=== PATIENT | female | born 1985 | race Caucasian/White ===

== ENCOUNTER 2021-12-05 12:01 | Emergency (ER) | payer OTHER ==
--- NOTE | 2021-12-05 12:40 | ED Physician Documentation ---
History of Present Illness - Stated complaint Stated Complaint: LT WRIST INJURY - Chief complaint Chief Complaint: Trauma Ext - Additonal information Additional information: 36-year-old female presents emergency department for evaluation of acute left wrist pain. She slipped on water on her floor at home falling backward onto her left wrist. She was wearing a watch at the time and has significant ecchymosis and swelling over the distal ulna Review of Systems Constitutional: reports: Reviewed and negative Nose: reports: Reviewed and negative Throat: reports: Reviewed and negative Cardiac: reports: Reviewed and negative Respiratory: reports: Reviewed and negative GI: reports: Reviewed and negative : reports: Reviewed and negative Musculoskeletal: reports: Extremity pain PD PAST MEDICAL HISTORY - Allergies Allergies/Adverse Reactions: Allergies Allergy/AdvReac Type Severity Reaction Status Date / Time No Known Drug Allergies Allergy Verified 12/05/21 12:07 PD ED PE EXPANDED - General General: Alert, No acute distress - Extremities Extremities: Left wrist (Significant swelling and tenderness over the distal ulna. Patient endorses some numbness and tingling of the small finger. Able to flex and extend. 2+ radial pulse. Mild tenderness over the distal radius.) Results - Vitals Vitals: Vital Signs - 24 hr 12/05/21 12:04 Temperature 36.6 C Heart Rate 74 Respiratory 18 Rate Blood Pressure 137/82 H O2 Saturation 100 - Rads (name of study) left wrist Radiology: EMP read indepedently (No acute fracture or dislocation.) PD MEDICAL DECISION MAKING - ED course Complexity details: re-evaluated patient, considered differential, d/w patient ED course: 36-year-old female presents emergency department for evaluation of acute left wrist pain after a FOOSH fall at home. Presents with significant swelling and ecchymosis over the distal ulna. My interpretation of the x-rays is that there is no acute fracture dislocation but given the significant swelling and tenderness I suspect there may be an occult fracture. Therefore patient is placed in a volar splint. CMST is preserved post splinting, The patient did present with some subtle tingling in her small finger. Patient is advised to have the splint removed and pain reevaluated in 1 week's time. If not markedly better may need repeat imaging. Routine splint care and emergent return precautions discussed. Departure - Departure Disposition: 01 Home, Self Care Clinical Impression: Contusion of left wrist, initial encounter Condition: Stable Record reviewed to determine appropriate education?: Yes Comments: Clementina mendoza were seen in the emergency department today for pain in your left wrist after you fell at home. He had a significant amount of swelling and bruising over your distal ulna. There are no findings of obvious fracture on x- ray but with the amount of swelling and tenderness that you have I feel it is safe to splint you for about the next week. In about 7 days time the splint should be removed and your pain should be reassessed. If you remain significantly painful or tender it may need to be jacquie-rayed. In general you can place an ice pack over your splint to help reduce swelling. Ibuprofen and Tylenol can be taken for discomfort. If you find that you are having worsening pain in the splint, any finger numbness that is new, finger swelling or discoloration then please return immediately to the ER for second evaluation
--- NOTE | 2021-12-05 13:02 | XRAY Report ---
PROCEDURE: Wrist 4 View LT INDICATIONS: Trauma TECHNIQUE: 4 views of the wrist were acquired. COMPARISON: None FINDINGS: Bones: No fractures or dislocations. No suspicious bony lesions. Scaphoid view: No visualized fracture. Soft tissues: No suspicious soft tissue calcifications. IMPRESSION: No visualized acute fracture or dislocation. However, occult injury cannot be excluded. Recommend cherelle rt interval imaging follow-up in 7-10 days as clinically indicated for additional evaluation. Reviewed by: Deborah Tamayo MD on 12/05/2021 1:01 PM PDT Approved by: Deborah Tamayo MD on 12/05/2021 1:01 PM PDT Station ID: [id number]
[2021-12-05 13:16] VITALS: BP 133/69
== END 2021-12-05 13:20 | disposition home or self-care (01) ==
LOC: ED 12:01
DX: S60.212A Contusion of left wrist, initial encounter (principal); W01.0XXA Fall on same level from slipping, tripping and stumbling without subsequent striking against object, initial encounter; Y92.009 Unspecified place in unspecified non-institutional (private) residence as the place of occurrence of the external cause
CPT/HCPCS: 99282; 99283

== ENCOUNTER 2022-04-14 09:22 | Emergency (ER) | payer OTHER ==
[2022-04-14 09:44] LABS: BILIRUBIN,URINE NEGATIVE (NEGATIVE); GLUCOSE, URINE (UA) NEGATIVE (NEGATIVE); KETONES,URINE (UA) NEGATIVE (NEGATIVE); LEUKOCYTE ESTERASE, URINE TRACE (NEGATIVE); NITRITE,URINE NEGATIVE (NEGATIVE); OCCULT BLOOD,URINE NEGATIVE (NEGATIVE); PROTEIN,URINE NEGATIVE (NEGATIVE); UROBILINOGEN,URINE 0.2 (NORMAL) E.U./dL (NORMAL)
[2022-04-14 09:46] LABS: CLARITY,URINE CLEAR (CLEAR); HCG UR QUAL NEGATIVE
[2022-04-14] MEDS ORDERED: ONDANSETRON 4 MG/2 ML VIAL IVP STA (09:48)
[2022-04-14] MEDS ORDERED: HYDROmorphone 1 MG/ML CARPUJECT IVP STA (09:48)
[2022-04-14 09:49] LABS: BASOPHILS % (AUTO) 0.3 %; EOSINOPHILS % (AUTO) 0.5 %; HCT - HEMATOCRIT 41.4 % (37.0-47.0); LYMPHOCYTES # (AUTO) 1.9 10^3/uL (1.5-3.5); LYMPHOCYTES % (AUTO) 30.4 %; MEAN CORPUSCULAR HEMOGLOBIN 31.5 pg (27.0-31.0); MEAN CORPUSCULAR HGB CONC 33.8 g/dL (32.0-36.0); MEAN CORPUSCULAR VOLUME 93.2 fL (81.0-99.0); MEAN PLATELET VOLUME 10.4 fL (7.9-10.8); MONOCYTES # (AUTO) 0.3 10^3/uL (0.0-1.0); MONOCYTES % (AUTO) 5.2 %; NEUTROPHILS % (AUTO) 63.3 %; PLT - PLATELET COUNT 316 10^3/uL (130-450); RED BLOOD COUNT 4.44 10^6/uL (4.20-5.40); RED CELL DISTRIBUTION WIDTH 12.2 % (12.0-15.0); WHITE BLOOD COUNT 6.4 x10^3/uL (4.8-10.8)
--- NOTE | 2022-04-14 09:51 | ED Physician Documentation ---
PD HPI ABD PAIN - Stated complaint Stated Complaint: RT HIP/ABD PX NAUSEA - Chief complaint Chief Complaint: Abd Pain - Additional information Additional information: Patient is a 36-year-old female presenting with right lower quadrant and right- sided hip pain. Pain began acutely this morning. Reports associated nausea without vomiting. States has felt similar pain in the past but never this severe. 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 Reports a family history of precancerous tumors in the appendix in both her mother and sister. 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 HEENT: Tonsil/Adenoidectomy - Present Medications Home Medications: Ambulatory Orders Medication Instructions Recorded Confirmed HYDROcod/ACETAM 5/325 [[place] 5/325] 1 - 2 ea PO Q6H PRN #14 tablet 04/14/22 Ondansetron Odt [Zofran] 4 mg TL Q6H PRN #10 tablet 04/14/22 - Allergies Allergies/Adverse Reactions: Allergies Allergy/AdvReac Type Severity Reaction Status Date / Time No Known Drug Allergies Allergy Verified 04/14/22 09:36 - Social History Does the pt smoke?: No Smoking Status: Never smoker Does the pt drink ETOH?: Yes Does the pt have substance abuse?: No - Immunizations Immunizations are current?: Yes PD ED PE NORMAL - General General: Alert and oriented X 3 - HEENT HEENT: Atraumatic, PERRL - Neck Neck: Supple, no meningeal sign - Cardiac Cardiac: RRR, No gallop - Respiratory Respiratory: No respiratory distress, Clear bilaterally - Abdomen Abdomen: Normal bowel sounds, Other (Right lower quadrant tenderness) - Female Female : Deferred - Rectal Rectal: Deferred - Back Back: No CVA TTP, No spinal TTP - Derm Derm: Normal color - Extremities Extremities: No deformity Results - Vitals Vitals: Vital Signs - 24 hr 04/14/22 04/14/22 04/14/22 09:30 10:05 12:19 Temperature 36.7 C 37 C Heart Rate 72 61 57 L Respiratory 24 16 16 Rate Blood Pressure 137/86 H 128/79 118/79 O2 Saturation 99 97 99 Oxygen O2 Source Room air - Labs Labs: Laboratory Tests 04/14/22 04/14/22 04/14/22 09:38 09:44 09:44 WBC 6.4 RBC 4.44 Hgb 14.0 Hct 41.4 MCV 93.2 MCH 31.5 H MCHC 33.8 RDW 12.2 Plt Count 316 MPV 10.4 Neut # (Auto) 4.0 Lymph # (Auto) 1.9 [place] # (Auto) 0.3 Eos # (Auto) 0.0 Baso # (Auto) 0.0 Absolute Nucleated RBC 0.00 Nucleated RBC % 0.0 Sodium 140 Potassium 4.1 Chloride 104 Carbon Dioxide 28 Anion Gap 8.0 BUN 14 Creatinine 0.9 Estimated GFR (MDRD) 71 L Glucose 102 H Calcium 9.4 Total Bilirubin 0.9 AST 14 ALT 14 Alkaline Phosphatase 45 Total Protein 7.2 Albumin 4.6 Globulin 2.6 Albumin/Globulin Ratio 1.8 Lipase 31 Urine Color LIGHT YELLOW Urine Clarity CLEAR Urine pH 7.0 Ur Specific [place] 1.010 Urine Protein NEGATIVE Urine Glucose (UA) NEGATIVE Urine Ketones NEGATIVE Urine Occult Blood NEGATIVE Urine Nitrite NEGATIVE Urine Bilirubin NEGATIVE Urine Urobilinogen 0.2 (NORMAL) Ur Leukocyte Esterase TRACE H Urine RBC 0-5 Urine WBC 0-3 Ur Squamous Epith Cells FEW Squamous Urine Bacteria Few Ur Microscopic Review INDICATED Urine Culture Comments INDICATED Urine HCG, Qual NEGATIVE PD MEDICAL DECISION MAKING - ED course Complexity details: reviewed results, re-evaluated patient, d/w patient ED course: Patient 36-year-old female presenting to the emergency department for right lower quadrant abdominal pain. Afebrile, hemodynamically stable. Mild tenderness to palpation without guarding, rebound or rigidity. Comprehensive labs obtained all within normal limits or nonactionable. CT of the abdomen pelvis nonacute. Pelvic ultrasonography negative for TOA, ruptured cyst, or ovarian torsion. Patient given medication for pain control. At this time will discharge for follow-up with primary care as needed. Otherwise clear return precautions and follow-up instructions given prior to discharge. Departure - Departure Disposition: 01 Home, Self Care Clinical Impression: Abdominal pain Instructions: ED Pelvic Pain [facility] Prescriptions: HYDROcod/ACETAM 5/325 [[place] 5/325] 1 - 2 ea PO Q6H PRN #14 tablet PRN Reason: Pain Ondansetron Odt [Zofran] 4 mg TL Q6H PRN #10 tablet PRN Reason: Nausea / Vomiting Comments: Prescription sent electronically to [facility] pharmacy Thank you for allowing us to care for you today at [facility]. All the testing performed in the emergency department today including your blood work, urine analysis, CT scan of your abdomen and pelvis as well as the u ltrasound performed were all very reassuring. There does not appear to be a life-threatening cause for your symptoms. You were noted to have one dominant ovarian follicle but no indications of ruptu red cyst, obstructive blood flow, appendicitis or other surgical emergency. Be discharging to medication you can take at home for pain control for the next few days. Please drink plenty fluids and plenty of rest. I do recommend following up with your primary care doctor soon as possible. If anytime you develop any new or worsening symptoms please not hesitate to return to the emergency department. Discharge Date/Time: 04/14/22 12:37
[2022-04-14 09:57] LABS: BACTERIA,URINE Few /HPF (None Seen); RBC,URINE 0-5 /HPF (0-5); SQUAMOUS EPITHELIAL CELL,UR FEW Squamous (<= Few); WBC,URINE 0-3 /HPF (0-5)
[2022-04-14 10:01] LABS: ALBUMIN 4.6 g/dL (3.2-5.5); ALBUMIN/GLOBULIN RATIO 1.8 (1.0-2.2); BILIRUBIN,TOTAL 0.9 mg/dL (0.2-1.0); CALCIUM 9.4 mg/dL (8.5-10.3); CREATININE 0.9 mg/dL (0.4-1.0); POTASSIUM 4.1 mmol/L (3.5-5.0); TOTAL PROTEIN 7.2 g/dL (6.7-8.2)
--- NOTE | 2022-04-14 11:26 | CT Report ---
PROCEDURE: Abdomen/Pelvis W INDICATIONS: RLQ abd pain CONTRAST: IV CONTRAST: Isovue 370 ml: 100 PO CONTRAST: *NO PO CONTRAST TECHNIQUE: After the administration of IV contrast, 5 mm thick sections acquired from the diaphragms to the symp hysis. 5 mm thick coronal and sagittal reformats were acquired. For radiation dose reduction, the f ollowing was used: automated exposure control, adjustment of mA and/or kV according to patient size. COMPARISON: Same day ultrasound FINDINGS: Image quality: Excellent. ABDOMEN: Lung bases: Partially seen right base calcified subpleural nodule. Solid organs: Liver and spleen are normal in size and enhancement. Gallbladder Biliary system is non dilated. Pancreas enhances normally. No adrenal nodules. Kidneys demonstrate normal size an d enhancement, without hydronephrosis. Peritoneum and bowel: No bowel obstruction. Colonic diverticula are present. The appendix is normal. Nodes and vessels: No retroperitoneal or mesenteric adenopathy by size criteria. Aorta and inferior vena cava are normal in size. Miscellaneous: No ventral hernias. PELVIS: Genitourinary: Bladder wall thickness is normal. Tubal ligation devices. The left-sided device appe ars more distal and inferior than expected. Miscellaneous: No inguinal hernias or adenopathy. Bones: No suspicious bony lesions. No vertebral body compression fractures. IMPRESSION: Normal appendix. No bowel obstruction. Pelvic structures are better assessed on ultrasound, which has been ordered. The left-sided tubal lig ation device is positioned more distal and inferior than expected. Reviewed by: Conor Dillard MD on 04/14/2022 11:24 AM PDT Approved by: Conor Dillard MD on 04/14/2022 11:24 AM PDT Station ID: [id number]
[2022-04-14 12:19] VITALS: BP 118/79
--- NOTE | 2022-04-14 12:36 | Ultrasound Report ---
PROCEDURE: Pelvic w/Doppler Limited INDICATIONS: RLQ PAIN LMP 04/02/2022 TECHNIQUE: Real-time transabdominal scanning was performed of the pelvic organs, with image documentation. Dopp ler interrogation was performed of the ovaries bilaterally. COMPARISON: None. FINDINGS: Uterus: Uterus is normal in size at 10.9 x 3.8 x 5.0 cm cm. Endometrium measures 5.7 mm in combined thickness. Ovaries: Right ovary is 4.5 x 2.4 x 2.6 cm, for a volume of 7 cc. Left ovary measures 2.8 x 2.4 x 2. 1 cm, for a volume of 7 cc. Normal appearing arterial and venous waveforms are confirmed to each ova ry.] Cervix: Within normal limits Other: No pathologic free pelvic fluid. IMPRESSION: Normal ovaries and uterus. Reviewed by: Conor Dillard MD on 04/14/2022 12:34 PM PDT Approved by: Conor Dillard MD on 04/14/2022 12:34 PM PDT Station ID: [id number]
== END 2022-04-14 12:37 | disposition home or self-care (01) ==
LOC: ED 09:22
DX: R10.31 Right lower quadrant pain (principal)
CPT/HCPCS: 36415; 74177; 76856; 80053; 81001; 81025; 83690; 85025; 87086; 93976; 96374; 96375; 99283; 99284; J1170; Q9967; 81003

== ENCOUNTER 2022-11-05 06:08 | Emergency (ER) | payer OTHER ==
[2022-11-05] MEDS ORDERED: KETOROLAC 30 MG/ML VIAL IM STA (07:32)
[2022-11-05] MEDS ORDERED: CHERRY SYRUP 10 ML UDC PO ONE (07:33)
[2022-11-05] MEDS ORDERED: DEXAMETHASONE 10 MG/ML VIAL PO STA (07:33)
--- NOTE | 2022-11-05 07:37 | ED Physician Documentation ---
PD HPI BACK PAIN - Stated complaint Stated Complaint: L BACK PX - Chief complaint Chief Complaint: Trauma Ch/Bk - History obtained from History obtained from: Patient - History of Present Illness Timing - onset: Enter time (), Today Timing - duration: Hours Timing - details: Abrupt onset, Still present Location: Lower, Left Quality: Pain, Sharp Associated symptoms: No: Fever, Weakness, Numbness, Incontinent of urine, Unable to urinate, Hematuria, Incontinent of stool Improves with: Rest Worsened by: Movement, Palpation Contributing factors: Lifting Similar symptoms before: Has not had sx before Recently seen: Not recently seen - Additional information Additional information: 37-year-old female reports that she was working out this morning at 5:15 doing a lift with 135 pounds and she felt a sudden twinge of pain in her left lower back when her left foot slipped out to the side. She states that she is never had pain like this in her back previously she has not usually had any kind of a problem with her back and she is having problem with significant severe pain in the very specific area if she moves around at all. She states that she usually is able to lift about 250 pounds that the weight was not excessive but that her left foot slipped out to the side. She is otherwise well she has a prior history of section and she has had her tonsils out does not take any medications has an allergy to penicillin. She reports pain in the right lower quadrant with ovulation. She is not currently ill. Review of Systems Constitutional: denies: Fever Nose: denies: Congestion Throat: denies: Sore throat Respiratory: denies: Cough GI: denies: Vomiting, Diarrhea : denies: Dysuria Skin: denies: Rash Musculoskeletal: reports: Back pain. 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 HEENT: Tonsil/Adenoidectomy - Present Medications Home Medications: Ambulatory Orders Medication Instructions Recorded Confirmed Cyclobenzaprine [Flexeril] 10 mg PO TID PRN #20 tablet 11/05/22 HYDROcod/ACETAM 5/325 [[place] 5/325] 1 - 2 tablet PO Q6H PRN #14 tablet 11/05/22 - Allergies Allergies/Adverse Reactions: Allergies Allergy/AdvReac Type Severity Reaction Status Date / Time Penicillins Allergy Hives Verified 11/05/22 06:27 - Social History Does the pt smoke?: No Smoking Status: Never smoker Does the pt drink ETOH?: Yes Does the pt have substance abuse?: No - Immunizations Immunizations are current?: Yes - POLST Patient has POLST: No PD ED PE NORMAL - Vitals Vital signs reviewed: Yes - General General: Alert and oriented X 3, No acute distress, Well developed/nourished, Other (laying supine not moving) - HEENT HEENT: Atraumatic, PERRL, EOMI - Neck Neck: Supple, no meningeal sign, No bony TTP - Respiratory Respiratory: No respiratory distress - Back Back: No CVA TTP, No spinal TTP, Other (tenderness to the left SI joint area specifically. No mass, crepitance or deformity noted. ) - Derm Derm: Normal color, Warm and dry, No rash - Extremities Extremities: No deformity, No edema - Neuro Neuro: Alert and oriented X 3, community health navigator 2-12 intact, No motor deficit, No sensory deficit, Normal speech Eye Opening: Spontaneous Motor: Obeys Commands Verbal: Oriented GCS Score: 15 - Psych Psych: Normal mood, Normal affect Results - Vitals Vitals: Vital Signs - 24 hr 11/05/22 06:21 Temperature 36.8 C Heart Rate 75 Respiratory 18 Rate Blood Pressure 128/63 O2 Saturation 99 Oxygen O2 Source Room air - Rads (name of study) pelvis Radiology: Prelim report reviewed (Impression: 1. Bilateral hip osteoarthritis. No acute fracture no osseous lesions.), EMP read indepedently, See rad report PD Medical Decision Making - ED course Complexity details: reviewed old records, reviewed results, re-evaluated patient, considered differential, d/w patient ED course: 37-year-old female with a musculoskeletal injury to her lower back from a jarring type injury has pain specific to the SI joint. She is uncomfortable with this and we have obtained imaging to rule out SI joint disruption. The patient was provided pain relief with Toradol and dexamethasone. Departure - Departure Disposition: 01 Home, Self Care Clinical Impression: Back strain Qualifiers: Encounter type: initial encounter Qualified Code(s): S39.012A - Strain of muscle, fascia and tendon of lower back, initial encounter Condition: Stable Instructions: ED Sprain Strain Lumbar Follow-Up: TYLER Whitney [Provider Group] Prescriptions: Cyclobenzaprine [Flexeril] 10 mg PO TID PRN #20 tablet PRN Reason: Spasms HYDROcod/ACETAM 5/325 [[place] 5/325] 1 - 2 tablet PO Q6H PRN #14 tablet PRN Reason: Pain Comments: Clementina, today it looks like you have a jarring type injury to the lower back over the SI joint. This will take about 10-14 days to heal and the recommendation is to avoid movements that hurt and ice and stretch the area that is injured. [place] have [place] a work note for 5 days. Forms: Activity restrictions
--- NOTE | 2022-11-05 08:22 | XRAY Report ---
PROCEDURE: Pelvis 1 View INDICATIONS: L SI joint traumatic pain TECHNIQUE: 1 view(s) of the pelvis acquired. COMPARISON: None. FINDINGS: Bones: No fractures or dislocations. No suspicious bony lesions. Mild joint space narrowing and pe riareolar osteophyte formation at the bilateral hip joints. Soft tissues: Visualized bowel gas pattern is normal. No suspicious soft tissue calcifications. IMPRESSION: 1. Bilateral hip osteoarthritis. 2. No acute fracture. No osseous lesion. If symptoms and/or clinical suspicion for pathology continue , further assessment with repeat plain films, or advanced imaging (e.g., CT, MRI, or bone scan) is re commended for further assessment. Reviewed by: Randy Singh MD on 11/05/2022 8:20 AM [facility] Approved by: Randy Singh MD on 11/05/2022 8:20 AM PST Station ID: [id number]
[2022-11-05 08:56] VITALS: BP 140/64
== END 2022-11-05 08:56 | disposition home or self-care (01) ==
LOC: ED 06:08
DX: S39.012A Strain of muscle, fascia and tendon of lower back, initial encounter (principal); X58.XXXA Exposure to other specified factors, initial encounter; Y93.B3 Activity, free weights
CPT/HCPCS: 72170; 96372; 99283; A9270

== ENCOUNTER 2024-05-10 09:23 | Emergency (ER) | payer OTHER ==
--- NOTE | 2024-05-10 09:38 | ED Physician Documentation ---
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 History of remote tubal ligation and . She has chronic issues with pelvic pain, always on the right side radiating to the back. It usually comes midcycle which is true this time, she woke with it at 1 AM this morning and she is 15 days after her LMP. This month is particular bad and it is associated with nausea and vomiting. She has seen gynecology for this and sounds like she was told there was no specific intervention necessary or offered. 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 ligation HEENT: Tonsil/Adenoidectomy - Present Medications Home Medications: Ambulatory Orders Medication Instructions Recorded Confirmed Cyclobenzaprine [Flexeril] 10 mg PO TID PRN #20 tablet 11/05/22 HYDROcod/ACETAM 5/325 [[place] 5/325] 1 - 2 tablet PO Q6H PRN #14 tablet 11/05/22 HYDROcod/ACETAM 5/325 [[place] 5/325] 1 - 2 tab PO Q6H PRN #10 tablet 05/10/24 - Allergies Allergies/Adverse Reactions: Allergies Allergy/AdvReac Type Severity Reaction Status Date / Time Penicillins Allergy Hives Verified 05/10/24 09:36 - Social History Does the pt smoke?: No Smoking Status: Never smoker Does the pt drink ETOH?: Yes Does the pt have substance abuse?: No - Immunizations Immunizations are current?: Yes - POLST Patient has POLST: No PD ED PE NORMAL - Vitals Vital signs reviewed: Yes - General General: Alert and oriented X 3, No acute distress - Abdomen Abdomen: Other (R pelvic ttp, no surg signs) - Back Back: No CVA TTP, No spinal TTP - Derm Derm: Normal color, Warm and dry - Neuro Neuro: Alert and oriented X 3, Normal speech Results - Vitals Vitals: Vital Signs - 24 hr 05/10/24 09:30 Temperature 36.7 C Heart Rate 74 Respiratory 14 Rate Blood Pressure 135/82 H O2 Saturation 100 Oxygen O2 Source Room air - Labs Labs: Laboratory Tests 05/10/24 05/10/24 05/10/24 09:40 09:40 09:45 WBC 8.3 RBC 4.58 Hgb 13.8 Hct 42.2 MCV 92.1 MCH 30.1 MCHC 32.7 RDW 12.7 Plt Count 323 MPV 10.4 Neut # (Auto) 5.4 Lymph # (Auto) 2.2 [place] # (Auto) 0.6 Eos # (Auto) 0.1 Baso # (Auto) 0.0 Absolute Nucleated RBC 0.00 Nucleated RBC % 0.0 Sodium 137 Potassium 4.0 Chloride 106 Carbon Dioxide 26 Anion Gap 5.0 L BUN 13 Creatinine 0.7 Estimated GFR (MDRD) 94 Glucose 94 Calcium 9.0 Total Bilirubin 0.5 AST 16 ALT 19 Alkaline Phosphatase 54 Total Protein 6.9 Albumin 4.3 Globulin 2.6 Albumin/Globulin Ratio 1.7 Lipase 17 Urine Color LT. YELLOW Urine Clarity CLEAR Urine pH 7.5 Ur Specific [place] 1.010 Urine Protein NEGATIVE Urine Glucose (UA) NEGATIVE Urine Ketones NEGATIVE Urine Occult Blood NEGATIVE Urine Nitrite NEGATIVE Urine Bilirubin NEGATIVE Urine Urobilinogen 0.2 (NORMAL) Ur Leukocyte Esterase NEGATIVE Ur Microscopic Review NOT INDICATED Urine Culture Comments NOT INDICATED Urine HCG, Qual NEGATIVE - Rads (name of study) Pelvic sono Relevant Findings:: Prelim report reviewed, Final report received (negative) PD Medical Decision Making - ED course ED course: She presents with right sided abdominal pain with nausea and vomiting. Appendicitis is of course considered but that seems less likely as she has this every month midcycle and her current pattern and pain location is typical for that. Given the above it does seem more like a issue with reproductive organs and an ultrasound is ordered. She was treated initially with IV Toradol and Zofran as she is driving but if ineffective she will try to find a ride. CBC, CMP, urinalysis and test were all normal/negative. She did need a dose of Dilaudid for pain after which her pain was a 2 and on reexamination at that time (about 11:20 AM) she was nontender. Doubt she has appendicitis given the recurrent nature of this and lack of tenderness or leukocytosis but we have given close return precautions. Departure - Departure Disposition: 01 Home, Self Care Clinical Impression: Pelvic pain in female Condition: Good Record reviewed to determine appropriate education?: Yes Instructions: ED Pelvic Pain [facility] Prescriptions: HYDROcod/ACETAM 5/325 [[place] 5/325] 1 - 2 tab PO Q6H PRN #10 tablet PRN Reason: Pain Comments: [facility] [place] referral to gynecology given chronic recurrent pelvic pain of unclear etiology. Return for new or worsening symptoms or if anything makes you think that this is not sure usual midcycle pain. Forms: PCP List, Activity restrictions
[2024-05-10 09:48] LABS: BASOPHILS % (AUTO) 0.4 %; EOSINOPHILS # (AUTO) 0.1 10^3/uL (0.0-0.7); EOSINOPHILS % (AUTO) 1.2 %; HCT - HEMATOCRIT 42.2 % (37.0-47.0); HGB - HEMOGLOBIN 13.8 g/dL (12.0-16.0); LYMPHOCYTES # (AUTO) 2.2 10^3/uL (1.5-3.5); LYMPHOCYTES % (AUTO) 26.1 %; MEAN CORPUSCULAR HEMOGLOBIN 30.1 pg (27.0-31.0); MEAN CORPUSCULAR HGB CONC 32.7 g/dL (32.0-36.0); MEAN CORPUSCULAR VOLUME 92.1 fL (81.0-99.0); MEAN PLATELET VOLUME 10.4 fL (7.9-10.8); MONOCYTES # (AUTO) 0.6 10^3/uL (0.0-1.0); MONOCYTES % (AUTO) 6.6 %; NEUTROPHILS # (AUTO) 5.4 10^3/uL (1.5-6.6); NEUTROPHILS % (AUTO) 65.1 %; PLT - PLATELET COUNT 323 10^3/uL (130-450); RED BLOOD COUNT 4.58 10^6/uL (4.20-5.40); RED CELL DISTRIBUTION WIDTH 12.7 % (12.0-15.0); WHITE BLOOD COUNT 8.3 x10^3/uL (4.8-10.8)
[2024-05-10] MEDS: KETOROLAC 15 MG/ML VIAL IVP STA (09:48)
[2024-05-10] MEDS: ONDANSETRON 4 MG/2 ML VIAL IVP STA (09:49)
[2024-05-10 09:56] LABS: BILIRUBIN,URINE NEGATIVE (NEGATIVE); GLUCOSE, URINE (UA) NEGATIVE (NEGATIVE); KETONES,URINE (UA) NEGATIVE (NEGATIVE); LEUKOCYTE ESTERASE, URINE NEGATIVE (NEGATIVE); NITRITE,URINE NEGATIVE (NEGATIVE); OCCULT BLOOD,URINE NEGATIVE (NEGATIVE); PH,URINE 7.5 PH (5.0-7.5); PROTEIN,URINE NEGATIVE (NEGATIVE); UROBILINOGEN,URINE 0.2 (NORMAL) E.U./dL (NORMAL)
[2024-05-10 10:04] LABS: ALBUMIN 4.3 g/dL (3.2-5.5); ALBUMIN/GLOBULIN RATIO 1.7 (1.0-2.2); BILIRUBIN,TOTAL 0.5 mg/dL (0.2-1.0); CREATININE 0.7 mg/dL (0.6-1.3); TOTAL PROTEIN 6.9 g/dL (6.4-8.9)
[2024-05-10 10:12] LABS: CLARITY,URINE CLEAR (CLEAR); HCG UR QUAL NEGATIVE
[2024-05-10] MEDS: HYDROmorphone 1 MG/ML CARPUJECT IVP STA (10:29)
--- NOTE | 2024-05-10 11:24 | Ultrasound Report ---
PROCEDURE: Pelvic w/Doppler Complete INDICATIONS: r pelvic pain TECHNIQUE: Real-time scanning was performed of the pelvic organs, with image documentation. Additional endovagi nal scanning was necessary due to incomplete visualization of the adnexal and endometrial structures by transabdominal scanning. COMPARISON: CT abdomen and pelvis dated 04/14/2022, pelvic ultrasound dated 04/14/2022. FINDINGS: Uterus: Uterus is anteverted and normal in size at 8.6 x 4.6 x 5.4 cm. The myometrium is homogeneou s. The endometrium measures 15.8 mm in combined thickness. No fibroids Ovaries: The right ovary measures 3.8 x 3.6 x 2.4 cm, with a calculated ovarian volume of 17.2 cc. The left ovary measures 1.7 x 2.6 x 2.2 cm, with a calculated ovarian volume of 5.1 cc. The ovaries have a normal sonographic appearance. Less than 12 follicles can be seen in each ovary. No adnexal masses are seen. No adnexal masses. There is normal duplex intraovarian arterial and venous flow. Other: No pathologic free abdominal or pelvic fluid. There is physiologic fluid. IMPRESSION: Unremarkable pelvic ultrasound. No evidence of ovarian torsion. Reviewed by: Federico Harris MD on 05/10/2024 11:23 AM PDT Approved by: Federico Harris MD on 05/10/2024 11:23 AM PDT Station ID: [id number]
[2024-05-10 11:31] VITALS: BP 107/72; O2SAT 99
== END 2024-05-10 11:29 | disposition home or self-care (01) ==
LOC: ED 09:23
DX: R10.2 Pelvic and perineal pain (principal)
CPT/HCPCS: 36415; 76856; 80053; 81003; 81025; 83690; 85025; 93975; 96374; 96375; 99284; J1170; 81001; 87086

== ENCOUNTER 2024-06-16 07:30 | Outpatient (CLI) | payer OTHER ==
[2024-06-16 12:22] LABS: BASOPHILS % (AUTO) 0.8 %; EOSINOPHILS # (AUTO) 0.1 10^3/uL (0.0-0.7); EOSINOPHILS % (AUTO) 1.8 %; HCT - HEMATOCRIT 42.2 % (37.0-47.0); HGB - HEMOGLOBIN 13.9 g/dL (12.0-16.0); LYMPHOCYTES # (AUTO) 1.6 10^3/uL (1.5-3.5); MEAN CORPUSCULAR HEMOGLOBIN 30.5 pg (27.0-31.0); MEAN CORPUSCULAR HGB CONC 32.9 g/dL (32.0-36.0); MEAN CORPUSCULAR VOLUME 92.5 fL (81.0-99.0); MEAN PLATELET VOLUME 11.1 fL (7.9-10.8); MONOCYTES # (AUTO) 0.6 10^3/uL (0.0-1.0); MONOCYTES % (AUTO) 11.1 %; NEUTROPHILS # (AUTO) 2.8 10^3/uL (1.5-6.6); NEUTROPHILS % (AUTO) 54.3 %; PLT - PLATELET COUNT 296 10^3/uL (130-450); RED BLOOD COUNT 4.56 10^6/uL (4.20-5.40); RED CELL DISTRIBUTION WIDTH 12.6 % (12.0-15.0); WHITE BLOOD COUNT 5.1 x10^3/uL (4.8-10.8)
[2024-06-16 12:52] LABS: ALBUMIN 4.5 g/dL (3.2-5.5); ALBUMIN/GLOBULIN RATIO 1.9 (1.0-2.2); BILIRUBIN,TOTAL 0.6 mg/dL (0.2-1.0); CALCIUM 8.9 mg/dL (8.5-10.3); CREATININE 0.7 mg/dL (0.6-1.3); POTASSIUM 4.3 mmol/L (3.5-4.5); TOTAL PROTEIN 6.9 g/dL (6.4-8.9)
== END 2024-06-16 07:45 | disposition home or self-care (01) ==
LOC: LAB.N 07:30
PROVIDERS: ATTEND Nurse Practitioner
DX: K92.1 Melena (principal)
CPT/HCPCS: 36415; 80053; 85025